=== PATIENT | female | born 1995 | race Hispanic/Latino ===

== ENCOUNTER 2019-04-07 13:51 | Inpatient (IN) | payer MEDICAID, OTHER, SELFPAY ==
--- NOTE | 2019-04-07 21:24 | PDOC.FPROB ---
FMR OB H&P: HPI - History of Present Illness Chief Complaint: induction of labor Indentification: 23 yo @ 40.5 by LMP/19.4 wk US History of Present Illness: 23 yo @ 40.5 by LMP/19.4 wk US presents for induction of labor. Reports FB, denies VB, vaginal discharge, LOF. Reports headaches, some spots in her vision. Reports RUQ pain during this and last . Reports it is thought to be her gallbladder. Reports US of RUQ was unsuccessful at seeing gallbladder as baby was in the way. Her blood pressures and within normal range. Primary Care Physician: Salazar LEA FMR OB H&P: Current - Care : 5 Para: [id number] Gestational age: 40.5 Due date: 04/02/2019 Dating Criteria: LMP/19.4 wk sono Course/Complications: anemia of , s/p Fe infusion late to care presumed pyelonephritis, s/p treatment RUQ pain - OB Labs Blood type: O RH: positive Antibody Screen: negative HIV: negative RPR: negative HepBsAg: negative Rubella: immune Gonorrhea: negative Chlamydia: negative 1 hour gtt: 129 GBS: negative H&H: 8.6/27.2 Platelets: 271 FMR OB H&P: History - Past Medical History PMH: presumed pyelonephritis RUQ pain - OB History OB History: All vaginal deliveries 1st - 39 wks- GBS+ 2nd - 41 wks - anemia 3rd - PTL at 30 wks -twin B still at 1 weeks 4th - 40 weeks - 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: no STDs or infections per patient - Surgical History Sx History: none - Social History Social History: No t/a/d - Family History Family History: No DM, cancer, heart disease, genetic disease FMR OB H&P: Medications - Current Home Medications: Medication Instructions Recorded Confirmed Type No Known 04/07/19 04/07/19 History Allergies/Adverse Reactions: Allergies Allergy/AdvReac Type Severity Reaction Status Date / Time No Known Allergies Allergy Verified 04/07/19 22:17 FMR OB H&P: ROS - Review of Systems General: denies: fever/chills, weight/appetite/sleep changes Eyes: reports: vision changes. denies: eye pain ENT: reports: nasal congestion, rhinorrhea, sore throat Cardiovascular: denies: chest pain, palpitation Respiratory: reports: cough, congestion, shortness of breath Gastrointestinal: denies: nausea, vomiting, diarrhea, constipation, bright red blood, dark black tarry stools Genitourinary (Female): denies: dysuria, hematuria, vaginal discharge, vaginal pain, vaginal bleeding, contractions, vaginal pressure Musculoskeletal: denies: pain, stiffness Neurologic: denies: numbness, syncope, seizures, weakness Integumentary: denies: itching, rash Psychological: reports: anxiety (anxiety about delivery). denies: depression FMR OB H&P: Vital Signs - Maternal Vital signs: 98 F P 88 R 16 97 on RA BP 118/70 - Heart Tones Baseline: 130 Variability: moderate Acceleration: present Deceleration: absent Category: category 1 [place] contractions every: none FMR OB H&P: Physical Exam - Physical Exam General: NAD, awake, alert and oriented HEENT: normocephalic and atraumatic, PERRLA, EOMI, MMM, grossly normal vision, grossly normal hearing, oropharynx clear Neck: supple, trachea midline, no LAD Heart: RRR, normal S1/S2, no murmurs/rubs/gallops, no edema General: CTAB, no respiratory distress, good air movement, no wheezing Abdomen: soft, gravid, non-tender, bowel sound present Musculoskeletal: pulses present, FROM in all four extremities, no atrophy Neurological: no focal deficit Skin: no rash, good tugor, capillary refill <2 seconds Lymphatic: no unusual bruising or bleeding, no purpura Psychiatric: intact recent and remote memory, good judgement and insight, normal mood and affect - Pelvic Exam Vulva: normal hair distribution, appropriate kellee stage, no lesions, no discharge, normal rugae SVE: / FMR OB H&P: Results - Imaging Imaging: vertex, ASHLEIGH by bedside sono FMR OB H&P: A/P - Problem List (1) , post-term Current Visit: Yes Status: Acute Code(s): O48.0 - POST-TERM (2) Late care Current Visit: Yes Status: Acute Code(s): O09.30 - SUPRVSN OF PREG W INSUFFICIENT ANTENAT CARE, UNSP TRIMESTER (3) Anemia affecting Current Visit: Yes Status: Acute Code(s): O99.019 - ANEMIA COMPLICATING , UNSPECIFIED TRIMESTER Discussion: Date/Time: 04/07/19 2124 23 yo @ 40.5 by LMP/19.4 wk US presents for induction of labor. sIUP -SVE /hi -FHTs cat 1 -VSS, blood pressures <120/80 -GBS neg -start induction with cytotec -pt desires epidural -plans to bottle feed -plans to use IUD for contraception after delivery -baby girl named Deepthi! Anemia of -s/p fe infusion -Pt not taking PO medications/PNV -CBC pending Late to care RUQ pain -BP stable -follow up outpatient, US RUQ outpatient unable to visualize GB per patient report
[2019-04-07 22:24] VITALS: BMI 27.5
[2019-04-07] MEDS ORDERED: Lidocaine 1% (PF) 30 ML VIAL SC PRN (23:47)
[2019-04-07] MEDS ORDERED: Acetaminophen 500 MG TAB PO PRN (23:47)
[2019-04-07] MEDS ORDERED: Ibuprofen 800 MG TAB PO PRN (23:47)
[2019-04-07] MEDS ORDERED: Promethazine HCl 25 MG/ML VIAL IM PRN (23:47)
[2019-04-07] MEDS ORDERED: Ondansetron PF 4 MG/2 ML Vial IVP PRN (23:47)
[2019-04-07] MEDS ORDERED: NS / Oxytocin 40 units/1000ml 1,000 ML IV PRN (23:47)
[2019-04-07] MEDS ORDERED: Butorphanol Tartrate 1 MG/ML VIAL SLOW IVP PRN (23:47)
[2019-04-07] MEDS: Misoprostol 100 MCG TAB VAG SCH (23:54)
[2019-04-07] MEDS: Lactated Ringer's 1,000 ML IV SCH (23:57)
[2019-04-08 00:38] LABS: Syphilis Antibody Nonreactive (Nonreactive); Syphilis Antibody Index 0.04 S/CO (<1.00 Non-Reactive)
[2019-04-08 00:39] LABS: HBSAg Index 0.29 S/CO (0-0.99); Hep B Surf Ag Non-Reactive S/CO (NonReactive)
[2019-04-08 00:40] LABS: Hemoglobin 9.1 g/dL (12.0-16.0); Mean Corpuscular HGB CONC 32.2 g/dL (32.0-36.0); Mean Corpuscular Hemoglobin 20.5 pg (27.0-31.0); Mean Corpuscular Volume 63.6 fL (78.0-98.0); Mean Platelet Volume 5.7 fL (7.4-10.4); Platelet Count 264 thou/uL (130-400); RBC Distribution Width 21.3 % (11.5-14.5); Red Blood Cell (RBC) Count 4.43 mill/uL (4.20-5.40); White Blood Cell (WBC) Count 4.7 thou/uL (4.8-10.8)
--- NOTE | 2019-04-08 00:57 | PDOC.EVN ---
Event Note - Event Note Event Note: Date/Time: 04/08/19 0051 I personally evaluated the patient and discussed the management with Dr. Sharee Mendoza I agree with the History, Examination, Assessment and Plan documented above with any addition or exceptions noted below - 23 yo @40 5/7 weeks c/w 19 week USG admitted for induction. Occ ctx per pt. Denies LOF, VB (+) FM PObHx/ PSH/PMH reviewed and agree with residents documentation. Afebrile VSS SVE 1/ thick/-3 Cat 1 FHTs. [place]- no ctx. A/ P: 1);IUP@ 40 5/7 weeks - will place cytotec for cervical ripening. Recheck in 3-4 hours.
[2019-04-08] MEDS: Misoprostol 100 MCG TAB VAG SCH ×2 (03:19→11:15)
--- NOTE | 2019-04-08 03:41 | PDOC.EVN ---
Event Note - Event Note Event Note: S: Patient states her contractions aren't strong yet, she is feeling them mostly in her back. O: VSS. FHTs: baseline 120, + accels, no decels. cxns q2-5 minutes. A&P: sIUP -GBS neg -Pt desires epidural -does not plan on -SVE 1/thick/high @ 2300, first dose cytotec -SVE 1.5/40/-3 @ 0330, second dose cytotec -continue induction with second dose of cytotec. Continue to monitor. Recheck in 4 hrs.
[2019-04-08] MEDS: Lactated Ringer's 1,000 ML IV SCH ×2 (05:01→07:57)
[2019-04-08] MEDS ORDERED: Fentanyl 4 mcg/Bup 0.1% Cadd 100 ML ONE (07:19)
--- NOTE | 2019-04-08 07:36 | PDOC.LDPN ---
Labor & Delivery Progress Note - Subjective Subjective: painful contractions - Objective General: breathing through contractions SVE: /-1 per nurse FHT: category 1 [place] contractions every: q2-3 -: A/P: 1) IUP @ 40 6/7 weeks undergoing induction now entering active labor Anesthesia here to place epidural for pain management Progressing well; Category 1 FHTs Continue expectant management.
[2019-04-08] MEDS ORDERED: Ondansetron PF 4 MG/2 ML Vial IVP PRN (07:46)
[2019-04-08] MEDS ORDERED: diphenhydrAMINE 50 MG/ML VIAL IVP PRN (07:46)
[2019-04-08] MEDS ORDERED: Lactated Ringer's 500 ML IV PRN (07:46)
[2019-04-08] MEDS ORDERED: Naloxone HCl 0.4 mg/ml Vial IVP PRN ×2 (07:46)
[2019-04-08] MEDS ORDERED: ePHEDrine/0.9% NaCl/PF SYRINGE 50 mg/10 ml SLOW IVP PRN (07:46)
[2019-04-08] MEDS ORDERED: Promethazine HCl 25 MG/ML VIAL IM PRN (07:46)
[2019-04-08] MEDS ORDERED: Fentanyl 4 mcg/Bupivacaine 0.1% Cassette 100 ML EPIDURAL SCH (08:00)
[2019-04-08] MEDS ORDERED: NS w/ Oxytocin 10 units 500 ML ONE (08:02)
[2019-04-08] MEDS ORDERED: Bisacodyl 10 MG SUPP PR PRN (09:34)
[2019-04-08] MEDS ORDERED: Preparation H Ointment 28 GM TUBE PR PRN (09:34)
[2019-04-08] MEDS ORDERED: NS / Oxytocin 40 units/1000ml 1,000 ML IV SCH (09:34)
[2019-04-08] MEDS ORDERED: Methylergonovine 0.2 MG/ML VIAL IM PRN (09:34)
[2019-04-08] MEDS ORDERED: Misoprostol 200 MCG TAB VAG PRN (09:34)
[2019-04-08] MEDS ORDERED: Benzocaine-Menthol 82.5 ML CAN TOP PRN (09:34)
[2019-04-08] MEDS ORDERED: Methylergonovine 0.2 MG TAB PO PRN (09:34)
[2019-04-08] MEDS ORDERED: Prenatal Vitamin 1 TAB PO SCH (10:15)
[2019-04-08] MEDS ORDERED: Docusate Calcium (SURFAK) 240 MG CAP PO SCH (10:15)
[2019-04-08] MEDS: Acetaminophen 325 MG TAB PO PRN ×2 (10:55→16:07)
[2019-04-08] MEDS: Communication Order-Pharmacy FS SCH (11:00)
[2019-04-08] MEDS: Ibuprofen 800 MG TAB PO SCH ×2 (13:18→21:58)
[2019-04-08] MEDS: Ferrous Sulfate 325 MG TAB PO SCH (17:51)
[2019-04-08] MEDS: Docusate Calcium (SURFAK) 240 MG CAP PO SCH (21:59)
[2019-04-09] MEDS: Ibuprofen 800 MG TAB PO SCH ×3 (05:44→21:33)
--- NOTE | 2019-04-09 06:24 | PDOC.PP ---
Post Progress Note Post Day #: 1 Subjective: Patient says she slept well last night as baby was in nursery. She reports continued intermittent uterine cramping, episodes last 2-3 minutes and are uncomfortable. Reports vaginal bleeding comparable to a period. Denies fever, chills, foul smelling lochia. Is urinating well and tolerating PO intake. On return to room to examine baby, mother reports she passed a golfball size clot. PO intake tolerated: yes Flatus: yes Ambulation: yes Vital Signs (12 hours) Temp Pulse Resp BP Pulse Ox 04/09/19 05:30 97.9 F 54 L 18 115/54 L 04/09/19 00:20 97.7 F 54 L 18 122/74 04/08/19 20:10 97.7 F 54 L 20 107/65 97 Weight Weight 82.1 kg - Physical Examination General: NAD Respiratory: clear to auscultation bilaterally Abdominal: + bowel sounds, appropriately TTP Fundus firm & at: 2 cm below umbilicus, firm Neurological: no gross focal deficits Psychiatric: normal affect Result Diagrams: 04/09/19 10:14 Additional Labs: Post Labs Blood Type O POSITIVE 04/08/19 00:45 Hep Bs Antigen Non-Reactive S/CO (NonReactive) 04/07/19 23:50 (1) care following vaginal delivery Code(s): Z39.2 - ENCOUNTER FOR ROUTINE FOLLOW-UP Status: Acute (2) Anemia affecting Code(s): O99.019 - ANEMIA COMPLICATING , UNSPECIFIED TRIMESTER Status : Acute - Assessment/Plan 23 yo @ 40.5 by LMP/19.4 wk US presents for induction of labor. day #1 -bottle feeding -plans to use IUD for contraception after delivery -has had vaginal bleeding and passed clot this am. Will recheck H&H -receiving ibuprofen mar, tylenol prn pain Anemia of -s/p fe infusion prior to delivery -pre-delivery Hgb 9.1 Late to care Previous RUQ pain -follow up outpatient, US RUQ outpatient unable to visualize GB per patient report Dispo: pending H/H recheck. Patient interested in discharge this afternoon. Addendum - Attending - Attending Attestation Date/Time: 04/09/19 [id number] I personally evaluated the patient and discussed the management with Dr. Champagne I agree with the History, Examination, Assessment and Plan documented above with any addition or exceptions noted below. PPD # 1 s/p uncomplicated . Uterus is firm, nontender and 1cm below umbilicus. Pt appears pale. 1. day 1 -Pt meeting milestones. -Requested early d/c but baby's bilirubin is elevated so will wait until tomorrow for d/c -Reassurance offered that cramping is normal after delivery 2. Acute blood loss anemia in setting of chronic anemia of -Repeat hgb 8.1. Pt reports she does not tolerate PO iron -Will give iron transfusion prior to d/c Dispo: PPD # 2
[2019-04-09] MEDS: Communication Order-Pharmacy FS SCH (09:09)
[2019-04-09] MEDS: Ferrous Sulfate 325 MG TAB PO SCH ×2 (09:10→17:20)
[2019-04-09] MEDS: Docusate Calcium (SURFAK) 240 MG CAP PO SCH ×2 (09:10→21:33)
[2019-04-09] MEDS: Prenatal Vitamin 1 TAB PO SCH (09:10)
[2019-04-09 10:32] LABS: Hemoglobin 8.1 g/dL (12.0-16.0)
[2019-04-09] MEDS ORDERED: Iron Sucrose Complex 200 MG in Sodium Chloride 0.9% 250 ML 250 ML IVPB SCH (12:45)
[2019-04-09] MEDS ORDERED: Iron, Sodium Ferric Gluconate 250 MG in Sodium Chloride 0.9% 250 ML 250 ML IVPB SCH (13:15)
[2019-04-09] MEDS ORDERED: Sodium Chloride 0.9% 10 ML ONE (15:45)
[2019-04-09] MEDS: Acetaminophen 325 MG TAB PO PRN (21:33)
[2019-04-10] MEDS: Ibuprofen 800 MG TAB PO SCH (06:02)
--- NOTE | 2019-04-10 06:19 | PDOC.PP ---
Post Progress Note Post Day #: 2 Subjective: Patient says she is feeling well overall and is ready to go home. She reports vaginal bleeding is comparable to a period and has not passed any more clots. Has had some uterine cramping intermittently. Tolerating PO intake. Says she has not had BM yet but passing flatus and would not like any medication for this. Previously denied any symptomatic anemia but noted this am noted some lightheadedness upon standing. PO intake tolerated: yes Flatus: yes Ambulation: yes Vital Signs (12 hours) Temp Pulse Resp BP Pulse Ox 04/09/19 21:15 99 04/09/19 21:11 98.6 F 60 20 116/78 99 Weight Weight 82.1 kg - Physical Examination General: NAD Respiratory: clear to auscultation bilaterally Abdominal: + bowel sounds, no distention, appropriately TTP Fundus firm & at: 3 cm below umbilicus, firm Neurological: no gross focal deficits Psychiatric: normal affect Result Diagrams: 04/09/19 10:14 Additional Labs: Post Labs Blood Type O POSITIVE 04/08/19 00:45 Hep Bs Antigen Non-Reactive S/CO (NonReactive) 04/07/19 23:50 (1) care following vaginal delivery Code(s): Z39.2 - ENCOUNTER FOR ROUTINE FOLLOW-UP Status: Acute (2) Anemia affecting Code(s): O99.019 - ANEMIA COMPLICATING , UNSPECIFIED TRIMESTER Status : Acute - Assessment/Plan 23 yo @ 40.5 by LMP/19.4 wk US presents for induction of labor. day #2 -recovering well with routine PP care -bottle feeding -plans to use IUD for contraception after delivery -receiving ibuprofen mar, tylenol prn pain Anemia of -s/p fe infusion prior to delivery -pre-delivery Hgb 9.1-->8.1 PP. Patient reported difficulty tolerating PO iron at home so given iron transfusion yesterday. Late to care Previous RUQ pain -follow up outpatient, US RUQ outpatient unable to visualize GB per patient report Dispo: Plan for discharge today with f/u at [facility] in 2 weeks Addendum - Attending - Attending Attestation Date/Time: 04/10/19 0990 I personally evaluated the patient and discussed the management with Dr. Champagne I agree with the History, Examination, Assessment and Plan documented above with any addition or exceptions noted below. meeting appropriate milestones. Acute on chronic anemia s/p iron transfusion. Asymptomatic. Can d/c to home today
[2019-04-10] MEDS: Communication Order-Pharmacy FS SCH (07:45)
[2019-04-10 08:21] VITALS: BP 116/65; TEMP 98
[2019-04-10] MEDS: Prenatal Vitamin 1 TAB PO SCH (09:18)
[2019-04-10] MEDS: Docusate Calcium (SURFAK) 240 MG CAP PO SCH (09:18)
[2019-04-10] MEDS: Ferrous Sulfate 325 MG TAB PO SCH (09:18)
== END 2019-04-10 12:00 | disposition home or self-care (01) | DRG 806 ==
LOC: L&D 21:52 → 3SW 04-08 10:55
PROVIDERS: ADMIT Family Medicine; ATTEND Family Medicine
PROC: 10907ZC Drainage of Amniotic Fluid, Therapeutic from Products of Conception, Via Natural or Artificial Opening (ICD-10-PCS; principal; 2019-04-07)
PROC: 10E0XZZ Delivery of Products of Conception, External Approach (ICD-10-PCS; 2019-04-07)
PROC: 3E0P7VZ Introduction of Hormone into Female Reproductive, Via Natural or Artificial Opening (ICD-10-PCS; 2019-04-07)
PROC: 3E033VJ Introduction of Other Hormone into Peripheral Vein, Percutaneous Approach (ICD-10-PCS; 2019-04-07)
DX: O48.0 Post-term pregnancy (principal); D62 Acute posthemorrhagic anemia; Z37.0 Single live birth; O99.02 Anemia complicating childbirth; Z3A.40 40 weeks gestation of pregnancy
CPT/HCPCS: 36415; 51702; 85014; 85018; 85027; 86780; 86850; 86900; 86901; 87340; J2001; J2590; J2916; J7050

== ENCOUNTER 2022-07-31 23:38 | Emergency (ER) | payer OTHER ==
[2022-08-01 02:09] LABS: Bacteria/HPF 4+ HPF (None Seen); Bilirubin Negative (Negative); Blood, Urine Negative (Negative); Clarity Clear (Clear); Glucose, Urine (Dipstick) Normal (Negative); Ketone, Urine 10 mg/dL (Negative); Leukocyte 500 Leu/uL (Negative); Nitrite Negative (Negative); Protein, Urine (Dipstick) 10 mg/dL (Neg-Trace); Specific Gravity, Urine 1.015 (1.002-1.036); Squamous Epithelial 0-3 HPF (0-3); WBC/HPF 21-50 HPF (0-3)
[2022-08-01 02:27] LABS: Hemoglobin 7.4 g/dL (12.0-16.0); Mean Corpuscular Volume 58.2 fL (78.0-98.0); Red Blood Cell (RBC) Count 4.08 mill/uL (4.20-5.40); White Blood Cell (WBC) Count 5.7 thou/uL (4.8-10.8)
[2022-08-01 02:44] LABS: ALT (SGPT) Less than 7 U/L (8-55); AST (SGOT) 12 U/L (5-34); Albumin 3.3 g/dL (3.5-5.0); Alkaline Phosphatase 114 U/L (40-110); Anion Gap 8 mmol/L (10-20); BUN (Urea Nitrogen) 5 mg/dL (7.0-18.7); Bilirubin, Total 1.2 mg/dL (0.2-1.2); Calc. Creatinine Clearance 0 mL/min (70-130); Calcium 8.5 mg/dL (7.8-10.44); Carbon Dioxide 22 mmol/L (22-29); Chloride 103 mmol/L (98-107); Estimated GFR 124; Globulin 4.4 g/dL (2.4-3.5); Glucose 91 mg/dL (70-105); Lipase 38 U/L (8-78); Potassium 3.3 mmol/L (3.5-5.1); Protein, Total 7.7 g/dL (6.0-8.3); Sodium 130 mmol/L (136-145)
[2022-08-01 02:55] LABS: #Lymphocytes 1.5 thou/uL (1.20-3.40); #Monocytes 0.3 thou/uL (0.11-0.59); #Neutrophils 3.8 thou/uL (1.40-6.50); %Basophils 0.2 % (0.0-1.0); %Eosinophils 0.7 % (0.0-10.0); %Monocytes 5.9 % (0.0-10.0); %Neutrophils 67.2 % (42.0-75.0); Anisocytosis SLIGHT = 6-15 cells (100X) (0-5/hpf); Band 1 % (5-11); Elliptocytes SLIGHT = 2-5 cells (100X) (0-1/hpf); Eosinophils 1 % (0-10); Hypochromia MODERATE=16-30 cells (100X) (0-5/hpf); Large Platelets SLIGHT; Lymphocytes 22 % (21-51); MDiff Complete? YES; Mean Corpuscular HGB CONC 31.1 g/dL (32.0-36.0); Mean Corpuscular Hemoglobin 18.1 pg (27.0-31.0); Mean Platelet Volume 5.2 fL (7.4-10.4); Monocytes 4 % (0-10); Neutrophil 71 % (42-75); Ovalocytes SLIGHT = 2-5 cells (100X) (0-1/hpf); Platelet Count 335 thou/uL (130-400); Platelet Morphology Comment Appears Adequate; Polychromasia SLIGHT = 2-3 cells (100X) (0-2/hpf); RBC Distribution Width 18.8 % (11.5-14.5); Reflex for Review?? YES; Tear Drops SLIGHT = 2-5 cells (100X) (0-1/hpf)
[2022-08-01] MEDS ORDERED: Cephalexin 250 MG CAP ONE (07:34)
[2022-08-01] MEDS ORDERED: Potassium Chloride 20 MEQ TAB ONE (07:34)
[2022-08-01 13:57] LABS: Chlamydia by PCR Not Detected (NotDetected); GC by PCR Not Detected (NotDetected)
== END 2022-07-31 23:59 | disposition home or self-care (01) ==
LOC: ERS 23:38
DX: O30.002 Twin pregnancy, unspecified number of placenta and unspecified number of amniotic sacs, second trimester (principal); O23.42 Unspecified infection of urinary tract in pregnancy, second trimester; N39.0 Urinary tract infection, site not specified; O23.592 Infection of other part of genital tract in pregnancy, second trimester; O99.012 Anemia complicating pregnancy, second trimester; O99.282 Endocrine, nutritional and metabolic diseases complicating pregnancy, second trimester; E87.6 Hypokalemia; Z3A.27 27 weeks gestation of pregnancy
CPT/HCPCS: 80053; 81003; 81015; 83690; 85025; 85060; 87077; 87086; 87186; 87480; 87491; 87510; 87591; 87660; 87661